=== PATIENT | male | born 1965 | race Caucasian/White ===

== ENCOUNTER 2020-12-07 00:05 | Observation (INO) ==
[2020-12-07] MEDS ORDERED: SODIUM CHLORIDE 0.9% 500 ML IV STA (00:37)
[2020-12-07] MEDS ORDERED: dilTIAZem HCl 5 MG/ML 5 ML VIAL IV STA ×2 (00:37→02:06)
--- NOTE | 2020-12-07 00:42 | Emergency Department Note ---
History of Present Illness General Chief complaint: Arrhythmia/Palpitations Stated complaint: IRREG HEART BEAT Time Seen by Provider: 12/07/20 00:22 History of Present Illness 55-year-old male presents to the ED with a chief complaint of a sudden onset of palpitations or funny feeling in his chest that started around 1030 tonight, 2 hours prior to arrival. The patient states that he has not had similar symptoms previously. He denies any past medical history. He has not had any chest pains or shortness of breath. Denies any pain or swelling in his legs. Nothing makes his symptoms better or worse. Home Medications Medication Instructions Recorded Confirmed Type multivitamin 1 tab PO QAM 05/17/20 10/31/20 History Zinc Gummies 2 tabs PO DAILY 10/31/20 10/31/20 History epinephrine 0.3 mg/0.3 mL 0.3 mg IM ONCE PRN #1 ea 10/31/20 Rx injection, auto-injector (EpiPen 2-En) omega-3 fatty acids 0 mg PO DAILY 10/31/20 10/31/20 History Allergies Allergy/AdvReac Type Severity Reaction Status Date / Time bee venom protein (honey bee) Allergy POLY, Verified 10/31/20 20:10 SITE IS RED & HOT Past Med/Surg History Medical History No known health problems Surgical History History of wisdom tooth extraction Family History Father Postoperative deep vein thrombosis (DVT) Other No family history of adverse response to anesthesia Denies family history of Ovarian cancer Prostate cancer Myocardial infarction Breast cancer Colorectal cancer Social History Smoking Status: Never smoker Second Hand Exposure: No; Hx Alcohol Use: Yes Alcohol type: beer Alcohol Intake Frequency: 2-3 x/Week Hx Substance Use: No Preferred Language: Turkish Communication Ability: Effective Visual Impairment: No Limitations Hearing Ability: Normal Armhole Baster Jumpbasting Required: No Beliefs That Will Affect Care: None marital status: Single Current Living Situation: Significant Other current occupational status: employed Feels Safe at Home: Yes Childhood Exposure to Second-Hand Smoke: No Dental Care, Regularly: Yes Physical Activity Frequency: 3-4 Times per Week Seatbelt Use: always Sunscreen Use: Yes Assistive Devices: Glasses Review of Systems A total of 10 systems reviewed and were otherwise negative Physical Exam Vital Signs Vital Signs - 24 hr 12/07/20 00:09 12/07/20 00:28 12/07/20 00:30 Temperature 36.8 C Temperature Source Oral Pulse Rate 121 H 142 H Pulse Rate [Radial] 149 H Pulse Rate from SpO2 Sensor 141 H Respiratory Rate 20 18 19 Respiratory Effort / Characteristics Non-Labored Spontaneous Non-Labored Respiratory Depth Normal Normal Blood Pressure 168/100 H 142/115 H Blood Pressure [Left Arm] 177/113 H Blood Pressure Mean 122 124 Blood Pressure Mean [Left Arm] 134 Blood Pressure Position Sitting Pulse Oximetry 97 97 98 Oxygen Delivery Method Room Air Room Air Sepsis Recent Fever Within 48 Hours No Sepsis New/Unexplained Change in Mental Status N/A Sepsis Action Taken by Nursing No Action Required 12/07/20 01:00 12/07/20 01:30 Temperature Temperature Source Pulse Rate 109 H 102 H Pulse Rate [Radial] Pulse Rate from SpO2 Sensor 100 H Respiratory Rate 20 18 Respiratory Effort / Characteristics Respiratory Depth Blood Pressure 134/100 139/101 H Blood Pressure [Left Arm] Blood Pressure Mean 111 113 Blood Pressure Mean [Left Arm] Blood Pressure Position Pulse Oximetry 95 97 Oxygen Delivery Method Sepsis Recent Fever Within 48 Hours Sepsis New/Unexplained Change in Mental Status Sepsis Action Taken by Nursing CONSTITUTIONAL/VITAL SIGNS: Reviewed / noted above. GENERAL: Non-toxic in appearance. INTEGUMENTARY: Warm, dry, and [place]. HEAD: Normocephalic. EYES: without scleral icterus or trauma. ENT/OROPHARYNX: clear and moist. LYMPHADENOPATHY/NECK: Is supple without lymphadenopathy or meningismus. RESPIRATORY: Clear to auscultation bilaterally. No increased work of breathing. CARDIOVASCULAR: Rapid rate and irregular rhythm. GI/ABDOMEN: Soft and nontender. No organomegaly or pulsatile mass. EXTREMITIES: Warm and well perfused. BACK: No CVA tenderness. NEUROLOGICAL: Intact without focal deficits. PSYCHIATRIC: normal affect. MUSCULOSKELETAL: Normally developed with good muscle tone. TRIAGE NURSING DOCUMENTATION REVIEWED. Course Administered Medications Discontinued Medications Diltiazem HCl (Diltiazem Hcl 5 Mg/Ml 5 Ml Vial) 25 mg IV NOW STA Stop: 12/07/20 00:38 Last Admin: 12/07/20 00:47 Dose: 25 mg Documented by: [id number] Cosigned by: [id number] Sodium Chloride (Nss) 500 mls @ 999 mls/hr IV .Q31M STA Stop: 12/07/20 01:07 Last Infusion: 12/07/20 01:15 Dose: 0 mls/hr Documented by: [id number] Admin: 12/07/20 00:48 Dose: 999 mls/hr Documented by: [id number] Medical Decision Making Differential Diagnosis Differential includes arrhythmia, anemia, electrolyte disturbance, thyroid dysfunction, infection, thromboembolic event Medical Records Attestation: I reviewed the patient's medical records. Home Medications Current Medication List: was personally reviewed by me Laboratory Data Attestation: I reviewed the patient's lab results. Result diagrams: 12/07/20 00:20 12/07/20 00:20 Lab Results 12/07/20 12/07/20 Range/Units 00:20 00:20 WBC 10.06 (4.8-10.8) K/uL RBC 5.36 (4.7-6.1) M/uL Hgb 15.8 (14.0-18.0) g/dL Hct 47.5 (42-52) % MCV 88.6 (80-100) fL MCH 29.5 (25-34) pg MCHC 33.3 (32-36) g/dL RDW Std Deviation 45.8 (36.4-46.3) fL RDW Coeff of Julia 14.1 (11.5-14.5) % Plt Count 413 H (130-400) K/uL MPV 9.7 (7.4-10.4) fL Immature Gran % (Auto) 0.3 % Neut % (Auto) 59.0 % Lymph % (Auto) 27.7 % [place] % (Auto) 9.3 % Eos % (Auto) 3.3 % Baso % (Auto) 0.4 % Neut # (Auto) 5.93 (1.4-6.5) K/uL Lymph # (Auto) 2.79 (1.2-3.4) K/uL [place] # (Auto) 0.94 H (0.11-0.59) K/uL Eos # (Auto) 0.33 (0-0.5) K/uL Baso # (Auto) 0.04 (0-0.2) K/uL Immature Gran # (Auto) 0.03 H (0.00-0.02) K/uL Sodium 136 (136-145) mmol/L Potassium 3.7 (3.5-5.1) mmol/L Chloride 110 H (98-107) mmol/L Carbon Dioxide 27 (21-32) mmol/L Anion Gap -1.0 L (3-11) BUN 17 (7-18) mg/dl Creatinine 1.13 (0.6-1.4) mg/dl Est Cr Clr Drug Dosing 79.3 ml/min Est GFR ( Amer) 84.3 ml/min Est GFR (Non-Af Amer) 72.8 ml/min BUN/Creatinine Ratio 15.4 (10-20) Glucose 109 H (70-99) mg/dl Calcium 9.1 (8.5-10.1) mg/dl Magnesium 2.3 (1.8-2.4) mg/dl Total Bilirubin 0.6 (0.2-1) mg/dl AST 23 (15-37) U/L ALT 39 (12-78) U/L Alkaline Phosphatase 68 (45-117) U/L Troponin I < 0.015 (0-0.045) ng/ml Total Protein 7.6 (6.4-8.2) gm/dl Albumin 4.0 (3.4-5.0) gm/dl Globulin 3.6 (2.5-4.0) gm/dl Albumin/Globulin Ratio 1.1 (0.9-2) TSH 1.440 (0.300-4.500) uIu/ml Imaging Data Radiologist's Impression: Chest X-Ray 12/07/20 00:38 SINGLE VIEW CHEST CLINICAL HISTORY: Dysrhythmia. FINDINGS: An AP, portable, upright chest radiograph is obtained. No prior studies are available for comparison at the time of dictation. The heart is top normal for projection. The pulmonary vasculature is noncongested. The lungs and pleural spaces are clear. No pneumothorax is seen. The bony thorax is grossly intact. IMPRESSION: No acute cardiopulmonary abnormality. ACT 112: Negative or not required by law. Electronically signed by: Gonzalez Martinez M.D. 12/07/2020 1:16 AM ECG Data Attestation: I personally reviewed and interpreted this ECG as follows: Additional Comments: Twelve-lead EKG: Per my interpretation there is atrial fibrillation with a rapid ventricular response and the rate of around 140. No ST elevation. No PVCs. Normal TC. MDM Narrative 55-year-old male presents with no past medical history with an onset of pa lpitations or unusual feeling in his chest that started 2 hours prior to arrival. Modern twelve-lead EKG shows that the patient is in A. fib with RVR. CBC and chemistry panel was unremarkable. Chest x-ray did not show acute process. TSH was normal. The patient was given a IV Cardizem. This did slow the heart rate down for period of time and then it started to increase again. He was given a second dose of Cardizem IV. I did speak with the hospitalist. He will see the patient for further inpatient evaluation and care. Impression & Plan Atrial fibrillation with RVR, Atrial fibrillation, new onset Discharge Plan Visit Data Chief Complaint: Arrhythmia/Palpitations Stated Complaint: IRREG HEART BEAT ED Provider: Christiano Burch Discharge Problem: Atrial fibrillation with RVR, Atrial fibrillation, new onset Patient Disposition: Being Evaluated by Hospitalist Forms Stand Alone Forms: My [facility] Prescriptions Prescriptions: No Action multivitamin Tablet 1 tab PO QAM RF: 0 [place] 3 Fish Oil Capsule 0 mg PO DAILY RF: 0 Zinc Gummies 2 tabs PO DAILY RF: 0 epinephrine [EpiPen 2-En] 0.3 mg/0.3 mL auto-injector 0.3 mg IM ONCE PRN (Reason: allergic reaction) Qty: 1 RF: 0 Referrals Referrals: Leyda Dockery MD [Primary Care Provider] -
[2020-12-07 00:58] LABS: Basophils # (auto) 0.04 K/uL (0-0.2); Basophils % (auto) 0.4 %; Eosinophils # (auto) 0.33 K/uL (0-0.5); Eosinophils % (auto) 3.3 %; Hematocrit (blood only) 47.5 % (42-52); Hemoglobin 15.8 g/dL (14.0-18.0); Immature Granulocytes # (auto) 0.03 K/uL (0.00-0.02); Immature Granulocytes % (auto) 0.3 %; Lymphocytes # (auto) 2.79 K/uL (1.2-3.4); Lymphocytes % (auto) 27.7 %; Mean Corpuscular Hemoglobin 29.5 pg (25-34); Mean Corpuscular Hgb Conc 33.3 g/dL (32-36); Mean Corpuscular Volume 88.6 fL (80-100); Mean Platelet Volume 9.7 fL (7.4-10.4); Monocytes # (auto) 0.94 K/uL (0.11-0.59); Monocytes % (auto) 9.3 %; Neutrophils # (auto) 5.93 K/uL (1.4-6.5); Platelet Count 413 K/uL (130-400); RDW Coefficient of Variation 14.1 % (11.5-14.5); RDW Standard Deviation 45.8 fL (36.4-46.3); Red Blood Count 5.36 M/uL (4.7-6.1); White Blood Count 10.06 K/uL (4.8-10.8)
[2020-12-07 01:17] LABS: Alanine Aminotransferase 39 U/L (12-78); Aspartate Aminotransferase 23 U/L (15-37); BUN Creatinine Ratio 15.4 (10-20); Blood Urea Nitrogen 17 mg/dl (7-18); Calcium 9.1 mg/dl (8.5-10.1); Carbon Dioxide 27 mmol/L (21-32); Chloride 110 mmol/L (98-107); Creatinine Clr Calc Pharmacy 79.3 ml/min; Est GFR (African American) 84.3 ml/min; Est GFR (Non-African American) 72.8 ml/min; Glucose 109 mg/dl (70-99); Magnesium 2.3 mg/dl (1.8-2.4); Potassium 3.7 mmol/L (3.5-5.1); Sodium 136 mmol/L (136-145)
--- NOTE | 2020-12-07 01:17 | XRay Report ---
SINGLE VIEW CHEST CLINICAL HISTORY: Dysrhythmia. FINDINGS: An AP, portable, upright chest radiograph is obtained. No prior studies are available for c omparison at the time of dictation. The heart is top normal for projection. The pulmonary vasculatur e is noncongested. The lungs and pleural spaces are clear. No pneumothorax is seen. The bony thorax i s grossly intact. IMPRESSION: No acute cardiopulmonary abnormality. ACT 112: Negative or not required by law. Electronically signed by: Gonzalez Martinez M.D. 12/07/2020 1:16 AM
[2020-12-07 01:28] LABS: Albumin Globulin Ratio 1.1 (0.9-2); Alkaline Phosphatase 68 U/L (45-117); Bilirubin,Total 0.6 mg/dl (0.2-1); Globulin 3.6 gm/dl (2.5-4.0); Total Protein 7.6 gm/dl (6.4-8.2); Troponin I < 0.015 ng/ml (0-0.045)
[2020-12-07] MEDS ORDERED: POTASSIUM CHLORIDE CRTAB 20 MEQ TABCR PO STA (02:15)
[2020-12-07] MEDS ORDERED: dilTIAZem HCL 30 MG TAB PO STA (02:21)
[2020-12-07] MEDS ORDERED: ASPIRIN 81 MG ECTAB PO STA (02:40)
--- NOTE | 2020-12-07 02:47 | History & Physical Report ---
Date of Service December 07, 2020 Assessment & Plan (1) Atrial fibrillation with RVR: Plan: New onset atrial fibrillation, with RVR- The patient will be admitted to telemetry for serial cardiac enzymes, serial EKG's, cardiac rhythm monitoring and a 2-D echocardiogram with Dopplers. From the ED patient received diltiazem 25 mg IV, then 30 mg IV. He was given Cardizem 30 mg p.o. x1, Klor-Con [address] on NSS + KCl 20 mEq at 100 mils per hour x1 L Cardizem 30 mg p.o. every 6 hours, to begin at 9 AM, but will leave it to cardiology to change to Cardizem CD or place on metoprolol succinate. Give aspirin 81 mg now. Consult cardiology Patient did convert to normal sinus rhythm while still in ED. (2) Atrial fibrillation, new onset: Plan: See above History of Present Illness Chief Complaint: The patient presents to the emergency department with complaint of acute onset of palpitations that began around 1030 this evening, but 2 hours prior to arrival. Primary Care Provider: Leyda Dockery MD The patient is a 55-year-old male with no significant past medical history, who presents to the emergency department with complaint of acute onset of palpitations that began about 1030 this evening. He reports that he felt his pulse in his wrist, and felt that it was irregular. He and his just returned from a trip from [place]. He denies any previous episode of palpitations. He reports that his food intake and liquid intake is overall been about the same, but did not eat his usual banana every day while on vacation. He denies any associated chest pain, shortness of breath or dyspnea on exertion. He denies taking any [id number] medications, or any regular alcohol use. Allergies Allergy/AdvReac Type Severity Reaction Status Date / Time bee venom protein (honey bee) Allergy POLY, Verified 12/07/20 02:37 SITE IS RED & HOT Home Medications Medication Instructions Recorded Confirmed Type multivitamin 1 tab PO QAM 05/17/20 12/07/20 History Zinc Gummies 2 tabs PO DAILY 10/31/20 12/07/20 History epinephrine 0.3 mg/0.3 mL 0.3 mg IM ONCE PRN #1 ea 10/31/20 12/07/20 Rx injection, auto-injector (EpiPen 2-En) omega-3 fatty acids 0 mg PO DAILY 10/31/20 12/07/20 History Past Med/Surg History Medical History No known health problems Surgical History History of wisdom tooth extraction Family History Father Postoperative deep vein thrombosis (DVT) Other No family history of adverse response to anesthesia Denies family history of Ovarian cancer Prostate cancer Myocardial infarction Breast cancer Colorectal cancer Social History Smoking Status: Never smoker Second Hand Exposure: No; Hx Alcohol Use: Yes Alcohol type: beer Alcohol Intake Frequency: 2-3 x/Week Hx Substance Use: No Preferred Language: Paraguayan Communication Ability: Effective Visual Impairment: No Limitations Hearing Ability: Normal Stock Mover Required: No Beliefs That Will Affect Care: None marital status: Single Current Living Situation: Significant Other current occupational status: employed Feels Safe at Home: Yes Childhood Exposure to Second-Hand Smoke: No Dental Care, Regularly: Yes Physical Activity Frequency: 3-4 Times per Week Seatbelt Use: always Sunscreen Use: Yes Assistive Devices: Glasses Review of Systems Review of Systems: The patient denies chest pain, shortness of breath, dyspnea on exertion, cough, lower extremity swelling, sore throat, fevers, chills, sweats, weight change, fatigue, nausea, vomiting, diarrhea , constipation, abdominal pain, pelvic pain, blood in urine or stool, dysuria, urinary frequency or urgency, lightheadedness, dizziness, headache, memory loss, loss of consciousness, rash, abnormal bruising or bleeding, imbalance, focal or generalized weakness, numbness or tingling in arms or legs, generalized arthralgias or myalgias, back or neck pain, or night sweats. The review of systems is otherwise negative other than for that already noted above, and at least 10 systems have been reviewed. Physical Exam 2 Physical Exam: The patient is awake, alert and oriented 3, well developed and well nourished, normocephalic and atraumatic, lying in bed and in no acute distr ess. HEENT--PERRL, EOMI, mucous membranes and oropharynx normal. Neck--supple. No JVD. No bruits. Thyroid normal, trachea midline, no adenopathy. Heart--irregularly irregular. No murmurs, rubs or gallops. Lungs--clear bilaterally, no respiratory distress, no accessory muscle use. Abdomen--normal bowel sounds and soft. Nontender. Nondistended, no hernias or masses, no organomegaly. Extremities--no cyanosis or clubbing. No edema. Dermatologic--normal skin turgor, normal color, no abnormal lymph nodes, no rash. Neurologic--cranial nerves II through XII grossly intact. Rheumatologic--normal range of motion. Psychiatric--normal affect. Results & Data Results & Data ([facility]) Vital Signs (Past 12 Hours) Vital Signs Temp Pulse Pulse Resp BP BP Pulse Ox 12/07/20 02:30 112 H 20 152/117 H 96 12/07/20 02:00 129 H 22 153/109 H 97 12/07/20 01:30 102 H 18 139/101 H 97 12/07/20 01:00 109 H 20 134/100 95 12/07/20 00:30 142 H 19 142/115 H 98 12/07/20 00:28 149 H 18 177/113 H 97 12/07/20 00:09 98.2 F 121 H 20 168/100 H 97 Laboratory Results Laboratory Results WBC 10.06 K/uL (4.8-10.8) 12/07/20 00:20 RBC 5.36 M/uL (4.7-6.1) 12/07/20 00:20 Hgb 15.8 g/dL (14.0-18.0) 12/07/20 00:20 Hct 47.5 % (42-52) 12/07/20 00:20 MCV 88.6 fL (80-100) 12/07/20 00:20 MCH 29.5 pg (25-34) 12/07/20 00:20 MCHC 33.3 g/dL (32-36) 12/07/20 00:20 RDW Std Deviation 45.8 fL (36.4-46.3) 12/07/20 00:20 RDW Coeff of Julia 14.1 % (11.5-14.5) 12/07/20 00:20 Plt Count 413 K/uL (130-400) H 12/07/20 00:20 MPV 9.7 fL (7.4-10.4) 12/07/20 00:20 Immature Gran % (Auto) 0.3 % 12/07/20 00:20 Neut % (Auto) 59.0 % 12/07/20 00:20 Lymph % (Auto) 27.7 % 12/07/20 00:20 [place] % (Auto) 9.3 % 12/07/20 00:20 Eos % (Auto) 3.3 % 12/07/20 00:20 Baso % (Auto) 0.4 % 12/07/20 00:20 Neut # (Auto) 5.93 K/uL (1.4-6.5) 12/07/20 00:20 Lymph # (Auto) 2.79 K/uL (1.2-3.4) 12/07/20 00:20 [place] # (Auto) 0.94 K/uL (0.11-0.59) H 12/07/20 00:20 Eos # (Auto) 0.33 K/uL (0-0.5) 12/07/20 00:20 Baso # (Auto) 0.04 K/uL (0-0.2) 12/07/20 00:20 Immature Gran # (Auto) 0.03 K/uL (0.00-0.02) H 12/07/20 00:20 Sodium 136 mmol/L (136-145) 12/07/20 00:20 Potassium 3.7 mmol/L (3.5-5.1) 12/07/20 00:20 Chloride 110 mmol/L (98-107) H 12/07/20 00:20 Carbon Dioxide 27 mmol/L (21-32) 12/07/20 00:20 Anion Gap -1.0 (3-11) L 12/07/20 00:20 BUN 17 mg/dl (7-18) 12/07/20 00:20 Creatinine 1.13 mg/dl (0.6-1.4) 12/07/20 00:20 Est Cr Clr Drug Dosing 79.3 ml/min 12/07/20 00:20 Est GFR ( Amer) 84.3 ml/min 12/07/20 00:20 Est GFR (Non-Af Amer) 72.8 ml/min 12/07/20 00:20 BUN/Creatinine Ratio 15.4 (10-20) 12/07/20 00:20 Glucose 109 mg/dl (70-99) H 12/07/20 00:20 Calcium 9.1 mg/dl (8.5-10.1) 12/07/20 00:20 Magnesium 2.3 mg/dl (1.8-2.4) 12/07/20 00:20 Total Bilirubin 0.6 mg/dl (0.2-1) 12/07/20 00:20 AST 23 U/L (15-37) 12/07/20 00:20 ALT 39 U/L (12-78) 12/07/20 00:20 Alkaline Phosphatase 68 U/L (45-117) 12/07/20 00:20 Troponin I < 0.015 ng/ml (0-0.045) 12/07/20 00:20 Total Protein 7.6 gm/dl (6.4-8.2) 12/07/20 00:20 Albumin 4.0 gm/dl (3.4-5.0) 12/07/20 00:20 Globulin 3.6 gm/dl (2.5-4.0) 12/07/20 00:20 Albumin/Globulin Ratio 1.1 (0.9-2) 12/07/20 00:20 TSH 1.440 uIu/ml (0.300-4.500) 12/07/20 00:20 COVID-19 Eval Order Covid19 at [facility] 12/07/20 02:23 SARS-CoV-2 (PCR) NEGATIVE (Negative) 12/07/20 02:23 Impressions Chest X-Ray 12/07/20 00:38 SINGLE VIEW CHEST CLINICAL HISTORY: Dysrhythmia. FINDINGS: An AP, portable, upright chest radiograph is obtained. No prior studies are available for comparison at the time of dictation. The heart is top normal for projection. The pulmonary vasculature is noncongested. The lungs and pleural spaces are clear. No pneumothorax is seen. The bony thorax is grossly intact. IMPRESSION: No acute cardiopulmonary abnormality. ACT 112: Negative or not required by law. Electronically signed by: Gonzalez Martinez M.D. 12/07/2020 1:16 AM ECG Additional Comments: FREEMAN GILLETTE ID:[id number] 07-DEC-2020 00:15:09 [facility]- EDSTAT ROUTINE RETRIEVAL Atrial fibrillation with rapid ventricular response Nonspecific ST and T wave abnormality Abnormal ECG No previous ECGs available 25mm/s 10mm/mV 150Hz 9.0.9 12SL 241 EVA: 16 Unconfirmed Vent. rate 151 BPM NC interval * ms QRS duration 92 ms QT/QTc 300/475 ms P-R-T axes * 1965 (55 yr) Male 1in 0lb Room: Loc:15 Paste Maker:KI Ribeiro ind: Code Status & VTE Plan Code Status Full code VTE Prophylaxis Plan VTE Prophylaxis will be ordered: Yes PG Care Time/CCT Total # of Minutes Spent Total Time Spent with Patient: Total time spent is greater than 50% in coordination of care (as documented) at patient's floor/unit and/or counseling patient: Coding Level of Care Code INT OBSERVATION CARE 70M LVL 3 Diagnoses Atrial fibrillation with RVR I48.91 Atrial fibrillation, new onset I48.91
[2020-12-07] MEDS ORDERED: ACETAMINOPHEN 325 MG TAB PO PRN (04:36)
[2020-12-07] MEDS ORDERED: ONDANSETRON INJ 2 MG/ML 2 ML VIAL IV PRN (04:36)
[2020-12-07] MEDS ORDERED: NSS + 20MEQ KCL 20 MEQ/1,000 ML BAG IV SCH (05:00)
[2020-12-07 07:32] LABS: Lyme Ab IgG w/WB Rflx Negative (Negative); Lyme Ab IgM w/WB Rflx Negative (Negative)
[2020-12-07] MEDS ORDERED: MULTIVITAMIN TAB PO SCH (09:00)
[2020-12-07] MEDS ORDERED: dilTIAZem HCL 30 MG TAB PO SCH (09:00)
[2020-12-07] MEDS ORDERED: NON-FORMULARY MEDICATION (Omega-3 Fatty Acids Capsule) PO SCH (09:00)
[2020-12-07] MEDS ORDERED: METOPROLOL SUCC 50MG EXT REL TAB PO SCH (11:15)
--- NOTE | 2020-12-07 11:21 | Cardiology Consultation ---
Date of Consultation December 07, 2020 Assessment & Plan (1) Paroxysmal atrial fibrillation: (2) Elevated blood pressure reading: ASSESSMENT/PLAN: 1. Paroxysmal atrial fibrillation: We discussed the diagnosis. He was symptomatic when laying down, but otherwise without significant symptoms. Episode appears to have been approximately 4 - 5 hours in duration. We discussed treatment strategies. Recommend metoprolol succinate 50 mg once daily. Will arrange for 30 day outpatient event monitor to get a sense of AFib burden. We discussed stroke risk reduction with anticoagulation therapy. Chads Vasc score is 0 and if diagnosed with hypertension, score of 1. He has been hypertensive here but apparently better controlled otherwise. If blood pressure remains elevated on follow-up visit, would consider anticoagulation therapy at that time. Recommend echo, which can be done as an outpatient. 2. Elevated blood pressure: Readings elevated here but he quotes systolic blood pressure of 130 and diastolic in the 80s otherwise. If found to have elevated blood pressure on follow-up, would consider anticoagulation therapy as above. 3. Snoring: Consider outpatient sleep study as sleep apnea can precipitate atrial arrhythmia. 4. Disposition: Can be discharged home from a Cardiology standpoint. Case discussed with primary hospitalist, Dr. Cha. Follow-up in cardiology office in 1-2 months, after 30 day event monitor and echo. Thank you for allowing me to participate in the care of your patient. Please call for any other questions or concerns. Sincerely, Senthil Barrientos M.D. History of Present Illness Reason for Consultation: New onset atrial fibrillation Requesting Physician: Dr. Pizarro Attending Physician: Ronni Cha History of Present Illness Mr. Guallpa is a very pleasant 55-year-old gentleman with no significant past me dical history who was admitted on 12/07/2020 with atrial fibrillation. He returned home from [place] yesterday via airplane, arriving home around noon. He went to bed at approximately 8:00 p.m. and felt well. At 10:30 p.m., he woke up, but he is not sure why, and went and got a drink of water. When he laid back down on his left side, he felt palpitations as though his heart was fast and irregular. He checked his pulse confirming such. He came to the emergency department for evaluation. He denies chest pain, shortness of breath, syncope, near-syncope, or any other symptom. He admits that he did not feel symptoms while ambulating or sitting upright while coming to the emergency department, mostly only feeling symptoms when lying down. He received a rate- controlling medication, diltiazem, and then he no longer felt palpitations. He converted to sinus rhythm at 2:49 a.m.. He was not aware that he converted based on symptoms. He has not had any further palpitations. He typically walks 60 minutes per day, a few days per week and denies exertional symptoms. He snores on occasion but does not have witnessed episodes of apnea. When he awakens in the morning, he feels well rested in does not require naps during the day. He has been diagnosed with borderline hypertension." He had an elevated blood pressure on 02/02/2020 with his PCP with plans on monitoring his blood pressure to see if blood pressure remained elevated. He states that his blood pressure is typically in the 130s with diastolic 80s. He denies melena, hematochezia, hematuria, or edema. Review of systems: As above. Review of systems otherwise negative/unremarkable. Family history: No known premature CAD. Social history: He denies smoking. Occasional alcohol. No drugs. Lives at home with his girlfriend, Sheba. No children. 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 He is unaccompanied today. Allergies Allergy/AdvReac Type Severity Reaction Status Date / Time bee venom protein (honey bee) Allergy POLY, Verified 12/07/20 02:37 SITE IS RED & HOT Home Medications Medication Instructions Recorded Confirmed Type multivitamin 1 tab PO QAM 05/17/20 12/07/20 History Zinc Gummies 2 tabs PO DAILY 10/31/20 12/07/20 History epinephrine 0.3 mg/0.3 mL 0.3 mg IM ONCE PRN #1 ea 10/31/20 12/07/20 Rx injection, auto-injector (EpiPen 2-En) omega-3 fatty acids 0 mg PO DAILY 10/31/20 12/07/20 History metoprolol succinate 50 mg 50 mg PO QAM #30 tab 12/07/20 Rx tablet,extended release 24 hr Patient History Medical History (Updated 12/07/20 @ 11:23 by Sarkis Barrientos MD) Paroxysmal atrial fibrillation Surgical History History of wisdom tooth extraction Family History Father Postoperative deep vein thrombosis (DVT) Other No family history of adverse response to anesthesia Denies family history of Ovarian cancer Prostate cancer Myocardial infarction Breast cancer Colorectal cancer Social History Smoking Status: Never smoker Second Hand Exposure: No; Hx Alcohol Use: Yes Alcohol type: beer Alcohol Intake Frequency: 2-3 x/Week Hx Substance Use: No Preferred Language: Latvian Communication Ability: Effective Visual Impairment: No Limitations Hearing Ability: Normal Line Controller Required: No Beliefs That Will Affect Care: None marital status: Single Current Living Situation: Significant Other current occupational status: employed Feels Safe at Home: Yes Childhood Exposure to Second-Hand Smoke: No Dental Care, Regularly: Yes Physical Activity Frequency: 3-4 Times per Week Seatbelt Use: always Sunscreen Use: Yes Assistive Devices: None Physical Exam Physical Exam: Gen.: No acute distress. Alert and oriented. HEENT: Anicteric sclera. Neck: No JVD. No bruits. Normal carotid upstrokes bilaterally. Cardiac: PMI was nondisplaced. No ventricular heave. Regular rate and rhythm. Normal S1-S2. No murmurs, rubs, or gallops. Pulmonary: Clear to auscultation bilaterally without wheezes, rales, or rhonchi. Abdomen: Soft, nontender, nondistended, with normoactive bowel sounds. No bruits noted. Extremities: 2+ radial pulses bilaterally. 2+ posterior tibialis pulses bilaterally. No edema or cyanosis. Psychiatric: Affect appears appropriate. Results & Data ([facility]) Vital Signs (Past 12 Hours) Vital Signs Temp Pulse Pulse Resp BP BP Pulse Ox 12/07/20 08:00 37.0 C 87 20 149/76 H 98 12/07/20 07:55 83 12/07/20 04:52 82 12/07/20 04:36 36.8 C 88 16 150/95 H 95 12/07/20 03:00 90 18 146/97 H 97 12/07/20 02:30 112 H 20 152/117 H 96 12/07/20 02:00 129 H 22 153/109 H 97 12/07/20 01:30 102 H 18 139/101 H 97 12/07/20 01:00 109 H 20 134/100 95 12/07/20 00:30 142 H 19 142/115 H 98 12/07/20 00:28 149 H 18 177/113 H 97 12/07/20 00:09 36.8 C 121 H 20 168/100 H 97 Laboratory Results Laboratory Results - last 24 hr 12/07/20 12/07/20 12/07/20 00:20 00:20 02:23 WBC 10.06 RBC 5.36 Hgb 15.8 Hct 47.5 MCV 88.6 MCH 29.5 MCHC 33.3 RDW Std Deviation 45.8 RDW Coeff of Julia 14.1 Plt Count 413 H MPV 9.7 Immature Gran % (Auto) 0.3 Neut % (Auto) 59.0 Lymph % (Auto) 27.7 Platte % (Auto) 9.3 Eos % (Auto) 3.3 Baso % (Auto) 0.4 Neut # (Auto) 5.93 Lymph # (Auto) 2.79 Platte # (Auto) 0.94 H Eos # (Auto) 0.33 Baso # (Auto) 0.04 Immature Gran # (Auto) 0.03 H Sodium 136 Potassium 3.7 Chloride 110 H Carbon Dioxide 27 Anion Gap -1.0 L BUN 17 Creatinine 1.13 Est Cr Clr Drug Dosing 79.3 Est GFR ( Amer) 84.3 Est GFR (Non-Af Amer) 72.8 BUN/Creatinine Ratio 15.4 Glucose 109 H Calcium 9.1 Magnesium 2.3 Total Bilirubin 0.6 AST 23 ALT 39 Alkaline Phosphatase 68 Troponin I < 0.015 Total Protein 7.6 Albumin 4.0 Globulin 3.6 Albumin/Globulin Ratio 1.1 TSH 1.440 Lyme Disease IgG Ab Lyme Disease IgM Ab COVID-19 Eval Order Covid19 at [facility] SARS-CoV-2 (PCR) 12/07/20 12/07/20 12/07/20 02:23 06:15 06:15 WBC RBC Hgb Hct MCV MCH MCHC RDW Std Deviation RDW Coeff of Julia Plt Count MPV Immature Gran % (Auto) Neut % (Auto) Lymph % (Auto) Platte % (Auto) Eos % (Auto) Baso % (Auto) Neut # (Auto) Lymph # (Auto) Platte # (Auto) Eos # (Auto) Baso # (Auto) Immature Gran # (Auto) Sodium Potassium Chloride Carbon Dioxide Anion Gap BUN Creatinine Est Cr Clr Drug Dosing Est GFR ( Amer) Est GFR (Non-Af Amer) BUN/Creatinine Ratio Glucose Calcium Magnesium Total Bilirubin AST ALT Alkaline Phosphatase Troponin I < 0.015 Total Protein Albumin Globulin Albumin/Globulin Ratio TSH Lyme Disease IgG Ab Negative Lyme Disease IgM Ab Negative COVID-19 Eval Order SARS-CoV-2 (PCR) NEGATIVE Diagnostic Findings Telemetry personally reviewed: Atrial fibrillation converted to sinus rhythm at 2:49 a.m.. Has maintained sinus rhythm. ECGs personally reviewed: ECG 12/07/2020 at 12:15 a.m.: AFib with RVR 150 beats per minute. Nonspecific ST/T-wave abnormality. ECG 12/07/2020 at 2:50 a.m.: Sinus rhythm 87 beats per minute. ECG 12/07/2020 at 5:15 a.m.: Sinus rhythm 83 beats per minute. Chest x-ray 12/07/2020: No acute cardiopulmonary abnormality. Medications Administered Current Inpatient Medications Acetaminophen (Acetaminophen 325 Mg Tab) 650 mg PO Q4H PRN PRN Reason: Pain or Fever Stop: 01/06/21 04:35 Diltiazem HCl (Diltiazem Hcl 30 Mg Tab) 30 mg PO QID [facility] Stop: 01/06/21 08:59 Last Admin: 12/07/20 08:25 Dose: 30 mg Documented by: Potassium Chloride/Sodium Chloride (Normal Saline W/20 Meq Kcl) 20 meq in 1,000 mls @ 100 mls/hr IV .Q10H [facility] Stop: 12/07/20 14:59 Last Admin: 12/07/20 05:06 Dose: 100 mls/hr Documented by: Metoprolol Succinate (Metoprolol Succ 50mg Ext Rel Tab) 50 mg PO QAM [facility] Stop: 01/06/21 11:14 Multivitamins (Multivitamin Tab) 1 tab PO QAM [facility] Stop: 01/06/21 08:59 Last Admin: 12/07/20 08:24 Dose: 1 tab Documented by: Ondansetron HCl (Ondansetron Inj 2 Mg/Ml 2 Ml Vial) 4 mg IV Q6H PRN PRN Reason: Nausea Stop: 01/06/21 04:35 PG Care Time/CCT Total # of Minutes Spent Total Time Spent with Patient: Total time spent is greater than 50% in coordination of care (as documented) at patient's floor/unit and/or counseling patient: Coding Level of Care Code 94854 Office/OBS Consult Lvl 4 Diagnoses Paroxysmal atrial fibrillation I48.0 Elevated blood pressure reading R03.0
--- NOTE | 2020-12-07 11:49 | Discharge Summary ---
Date of Service December 07, 2020 Admission HPI Per Admitting Provider The patient is a 55-year-old male with no significant past medical history, who presents to the emergency department with complaint of acute onset of palpitations that began about 1030 this evening. He reports that he felt his pulse in his wrist, and felt that it was irregular. He and his just returned from a trip from [place]. He denies any previous episode of palpitations. He reports that his food intake and liquid intake is overall been about the same, but did not eat his usual banana every day while on vacation. He denies any associated chest pain, shortness of breath or dyspnea on exertion. He denies taking any [id number] medications, or any regular alcohol use. Principal Diagnosis Atrial fib. Discharge Exam The patient is awake, alert and oriented 3, well developed and well nourished, normocephalic and atraumatic, lying in bed and in no acute distress. HEENT--PERRL, EOMI, mucous membranes and oropharynx normal. Neck--supple. No JVD. No bruits. Thyroid normal, trachea midline, no adenopathy. Heart--RRR. No murmurs, rubs or gallops. Lungs--clear bilaterally, no respiratory distress, no accessory muscle use. Abdomen--normal bowel sounds and soft. Nontender. Nondistended, no hernias or masses, no organomegaly. Extremities--no cyanosis or clubbing. No edema. Dermatologic--normal skin turgor, normal color, no abnormal lymph nodes, no rash. Neurologic--cranial nerves II through XII grossly intact. Rheumatologic--normal range of motion. Psychiatric--normal affect. Discharge Data Allergies Allergy/AdvReac Type Severity Reaction Status Date / Time bee venom protein (honey bee) Allergy POLY, Verified 12/07/20 02:37 SITE IS RED & HOT Consultations 12/07/20 02:08 ED Decision to Admit Stat 12/07/20 04:36 Consult Cardiology Routine Hospital Course (1) Atrial fibrillation with RVR: New onset atrial fibrillation, with RVR- The patient will be admitted to telemetry for serial cardiac enzymes, serial EKG's, cardiac rhythm monitoring and a 2-D echocardiogram with Dopplers. From the ED patient received diltiazem 25 mg IV, then 30 mg IV. He was given Cardizem 30 mg p.o. x1, Klor-Con [address] on NSS + KCl 20 mEq at 100 mils per hour x1 L Cardizem 30 mg p.o. every 6 hours, to begin at 9 AM, but will leave it to cardiology to change to Cardizem CD or place on metoprolol succinate. Give aspirin 81 mg now. Consult cardiology Patient did convert to normal sinus rhythm Cardiology recommended outpatient 30 day heart monitor. CHADS VASC SCORE is 0. Will defer anticoagulation for now (2) Atrial fibrillation, new onset: See above Total Time Total Time Spent Total Time Spent (In Minutes): 32 Discharge Plan Discharge Items Patient Disposition: Home - Self-Care Reason For Visit: NEW ONSET ATRIAL FIB, WITH RVR Discharge Diagnosis: New onset Activity: Resume your previous activity Non-emergency contact: Primary Care Provider Call non-emergency contact if: you have any medication questions Follow-up/Referrals: Leyda Dockery MD [Primary Care Provider] - Diet: Regular Addtl Attending Provider Instructions: Cardiology will recommend an outpatient echocardiogram. They will also set up a 30 day heart monitor After this is completed, you will be seen at their office. They will contact you for an appointment. Pending Studies at Discharge: No Stand-Alone Forms: [facility] Omnisens, Smoking Cessation Medications and DC Order Prescriptions: New metoprolol succinate 50 mg Tablet Extended Release 24 Hr 50 mg PO QAM Qty: 30 RF: 0 Continued multivitamin Tablet 1 tab PO QAM RF: 0 omega-3 fatty acids Capsule 0 mg PO DAILY RF: 0 Zinc Gummies 2 tabs PO DAILY RF: 0 epinephrine [EpiPen 2-En] 0.3 mg/0.3 mL auto-injector 0.3 mg IM ONCE PRN (Reason: allergic reaction) Qty: 1 RF: 0 Discharge Orders: Discharge Order (Routine); Ordered 12/07/20 Ordered By: Ronni Cha Admission Data Admit Date/Time: 12/07/20 02:46 Attending Provider: Ronni Cha Admit Provider: Noble Pizarro Primary Care Provider: Leyda Dockery Other Providers: Noble Pizarro ; Sarkis Barrientos Other Interventions: Discharge Summary Assessment (RN) Last Done: 12/07/20 12:17 Coding Level of Care Code 90330 OBS Care - Discharge Diagnoses Atrial fibrillation with RVR I48.91 Atrial fibrillation, new onset I48.91
--- NOTE | 2020-12-08 07:01 | Electrocardiogram Report ---
Test Reason : Blood Pressure : / mmHG Vent. Rate : 151 BPM Atrial Rate : 083 BPM P-R Int : 000 ms QRS Dur : 092 ms QT Int : 300 ms P-R-T Axes : 000 004 -25 degrees QTc Int : 475 ms Atrial fibrillation with rapid ventricular response Nonspecific ST and T wave abnormality Abnormal ECG No previous ECGs available Confirmed by Sarkis Barrientos ([id number]) on 12/08/2020 7:01:24 AM Referred By: REFERRED SELF Confirmed By:Sarkis Barrientos
--- NOTE | 2020-12-08 07:04 | Electrocardiogram Report ---
Test Reason : Blood Pressure : / mmHG Vent. Rate : 087 BPM Atrial Rate : 087 BPM P-R Int : 170 ms QRS Dur : 086 ms QT Int : 366 ms P-R-T Axes : 044 -05 003 degrees QTc Int : 440 ms Normal sinus rhythm Cannot rule out Anterior infarct , age undetermined Abnormal ECG When compared with ECG of 07-DEC-2020 00:15, Sinus rhythm has replaced Atrial fibrillation Vent. rate has decreased BY [address] no longer depressed in Anterolateral leads Confirmed by Sarkis Barrientos ([id number]) on 12/08/2020 7:03:54 AM Referred By: REFERRED SELF Confirmed By:Sarkis Barrientos
--- NOTE | 2020-12-08 07:06 | Electrocardiogram Report ---
Test Reason : Blood Pressure : / mmHG Vent. Rate : 083 BPM Atrial Rate : 083 BPM P-R Int : 166 ms QRS Dur : 092 ms QT Int : 362 ms P-R-T Axes : 064 001 014 degrees QTc Int : 425 ms Normal sinus rhythm Normal ECG When compared with ECG of 07-DEC-2020 02:58, No significant change was found Confirmed by Sarkis Barrientos ([id number]) on 12/08/2020 7:05:38 AM Referred By: REFERRED SELF Confirmed By:Sarkis Barrientos
== END 2020-12-07 13:04 | disposition home or self-care (01) ==
LOC: ED 00:05 → 2S 00:05 → SUATTDRO 02:46 → 2S 04:32